=== PATIENT | male | born 1980 | race Caucasian/White ===

== ENCOUNTER → 2018-01-27 | Outpatient (REF) | payer SELFPAY ==
[~2018-01-27] MED LIST: CEFD300C35 PO; LOR5/325 PO; MELO-149 PO; NAP250 PO; OXYC-865 PO
[2018-01-27 12:52] LABS: PLATELET COUNT, AUTOMATED 217 K/uL (150-450)
== END ==
PROVIDERS: ATTEND Nurse Practitioner Family
DX: R51 Headache (principal); R42 Dizziness and giddiness
CPT/HCPCS: 82040; 82247; 82310; 82374; 82435; 82565; 82947; 84075; 84132; 84155; 84295; 84450; 84460; 84520; 85025